=== PATIENT | female | born 1980 ===

== ENCOUNTER 2017-10-01 06:18 | Day surgery (SDC) | payer OTHER ==
[2017-09-30 11:21] VITALS: BMI 24.0
--- NOTE | 2017-10-01 07:49 | CP.SDSHP ---
Same Day Surgery H & P - History Proposed Procedure: COLONSCOPY Pre-Op Diagnosis: SEE NOTES - Previous Medical/Surgical History Misc: Other Pain: 4.Moderate Pain - Allergies Allergies: Allergies No Known Allergies Allergy (Verified 09/30/17 10:46) - Physical Exam General Appearance: N Vital Signs: Vital Signs 10/01/17 06:45 Temperature 97.8 F Pulse Rate 77 Respiratory 19 Rate Blood Pressure 121/72 O2 Sat by Pulse 100 Oximetry Mental Status: Alert & Oriented x3 Neuro: WNL Heart: WNL Lungs: WNL GI: Other - {Optional Preform as Required} Breast: WNL Abdomen: Other Rectal: Other Integument: WNL : WNL Ortho: WNL ENT: WNL - Impression Pt. Evaluated Today:Candidate for Anesthesia & Procedure: Yes - Date & Time Time: 07:49 Short Stay Discharge - Short Stay Discharge Admitting Diagnosis/Reason for Visit: DIARRHEA Disposition: HOME/ ROUTINE
[2017-10-01] MEDS ORDERED: Lactated Ringer's 1,000 ML IV ONE (07:50)
[2017-10-01] MEDS ORDERED: Propofol 10 mg/ml Inj (20 ML) ONE (07:50)
[2017-10-01 08:25] VITALS: TEMP 98.4
[2017-10-01] MEDS ORDERED: Belladonna-Phenobarbital PO ONE (08:40)
[2017-10-01 12:06] VITALS: BP 103/65; PULSE 69; RESP 15; O2SAT 97
== END 2017-10-01 12:05 | disposition home or self-care (01) ==
LOC: C.ENDO 06:18
PROVIDERS: ATTEND Specialist
DX: K52.9 Noninfective gastroenteritis and colitis, unspecified (principal); K64.8 Other hemorrhoids
CPT/HCPCS: 45378; 84703; 88305; J2704; J7120

== ENCOUNTER 2017-10-08 06:20 | Day surgery (SDC) | payer OTHER ==
[2017-09-30 11:21] VITALS: BMI 24.0
[2017-10-08] MEDS ORDERED: Propofol 10 mg/ml Inj (20 ML) ONE (07:59)
--- NOTE | 2017-10-08 08:00 | CP.SDSHP ---
Same Day Surgery H & P - History Proposed Procedure: EGD Pre-Op Diagnosis: SEE NOTES - Previous Medical/Surgical History Misc: Other Pain: 4.Moderate Pain - Allergies Allergies: Allergies No Known Allergies Allergy (Verified 10/08/17 06:56) - Physical Exam General Appearance: N Vital Signs: Vital Signs 10/08/17 06:59 Temperature 97.6 F Pulse Rate 68 Respiratory 20 Rate Blood Pressure 106/71 O2 Sat by Pulse 98 Oximetry Mental Status: Alert & Oriented x3 Neuro: WNL Heart: WNL Lungs: WNL GI: Other - {Optional Preform as Required} Breast: WNL Abdomen: Other Rectal: Other Integument: WNL : WNL Ortho: WNL ENT: WNL - Impression Pt. Evaluated Today:Candidate for Anesthesia & Procedure: Yes - Date & Time Time: 08:00 Short Stay Discharge - Short Stay Discharge Admitting Diagnosis/Reason for Visit: DYSPEPSIA Disposition: HOME/ ROUTINE
[2017-10-08] MEDS ORDERED: Lactated Ringer's 500 ML IV ONE (08:08)
[2017-10-08 08:30] VITALS: O2SAT 100
[2017-10-08] MEDS ORDERED: Sucralfate 1 gm/10 ml Oral Susp UD PO ONE (08:35)
[2017-10-08] MEDS ORDERED: Belladonna-Phenobarbital PO ONE (08:45)
[2017-10-08 08:46] VITALS: TEMP 97.2
[2017-10-08] MEDS ORDERED: Pantoprazole 40 mg EC Tab PO ONE (08:50)
[2017-10-08 12:49] VITALS: BP 100/51; PULSE 61; RESP 12
== END 2017-10-08 12:40 | disposition home or self-care (01) ==
LOC: C.ENDO 06:20
PROVIDERS: ATTEND Specialist
DX: K29.70 Gastritis, unspecified, without bleeding (principal); K20.9 Esophagitis, unspecified; K29.80 Duodenitis without bleeding; B96.81 Helicobacter pylori [H. pylori] as the cause of diseases classified elsewhere
CPT/HCPCS: 43239; 84703; 88305; J2001; J2704; J7120